=== PATIENT | female | born 1980 | race Caucasian/White ===

== ENCOUNTER → 2017-08-27 | Outpatient (CLI) | payer OTHER ==
[~2017-08-27] MED LIST: Bactrim Ds Tab1 EACH PO; CODACE30 PO; CRUTCH4 USE; CYCL10; Carafate1 GM/10 ML PO; DIAZ5 PO; DOXY100 PO; ENJUVIA; Estradiol1 MG; HYDACE5 PO; HYDR1TAB94 PO; IBUP800 PO; IBUPROFEN; LACT10SY PO; MAGCIT300 PO; MS Contin15 MG PO; NAPR500 PO; ONDA4 PO; OXYACE5T; OXYACE5T PO; POLY500 PO; PREDNISONE; PROM25 PO; Prilosec Otc20 MG PO; RXOXYACE PO; TRAM50 PO
== END | disposition home or self-care (01) ==
LOC: LAB SHORT 14:54
DX: J02.9 Acute pharyngitis, unspecified (principal)
CPT/HCPCS: 87070; 87077; 87185

== ENCOUNTER 2017-09-30 16:32 | Emergency (ER) | payer OTHER ==
[~2017-09-30] VITALS: Ht 162.6 cm; Wt 63.5 kg
[~2017-09-30 16:32] MED LIST changes: -CYCL10; -Carafate1 GM/10 ML PO; -Estradiol1 MG; -HYDR1TAB94 PO; -Prilosec Otc20 MG PO
[2017-09-30] MEDS ORDERED: HYDR1TAB94 PO (17:03)
[2017-09-30 17:31] LABS: Source, Urine Clean Catch
[2017-09-30 17:40] LABS: Appearance, Urine Clear (Clear); Color, Urine Yellow (P-Yellow); Glucose Qualitative, Urine Neg (Neg); Ketones, Urine Neg (Neg); Leukocyte Esterase, Urine Neg (Neg); Nitrite, Urine Neg (Neg); Protein, Urine Neg (Neg)
[2017-09-30 17:41] LABS: Bilirubin, Urine Neg (Neg); Blood, Urine Neg (Neg); Urobilinogen, Urine NORM (Normal)
[2017-09-30 17:44] LABS: BASOPHILS ABSOLUTE AUTO 0.06 K/mm3 (0.00-0.23); BASOPHILS PERCENT AUTO 1 % (0-2); EOSINOPHILS ABSOLUTE AUTO 0.08 K/mm3 (0.00-0.68); EOSINOPHILS PERCENT AUTO 1 % (0-6); Hematocrit 37.6 % (33.0-51.0); Hemoglobin 12.3 g/dL (11.5-16.0); IMMATURE GRAN ABSOLUTE AUTO 0.03 K/mm3 (0.00-0.10); IMMATURE GRAN PERCENT AUTO 0 % (0-1); LYMPHOCYTES ABSOLUTE AUTO 1.96 K/mm3 (0.84-5.20); LYMPHOCYTES PERCENT AUTO 18 % (21-46); MONOCYTES ABSOLUTE AUTO 0.58 K/mm3 (0.16-1.47); MONOCYTES PERCENT AUTO 5 % (4-13); Mean Corpuscular HGB 30.1 pg (26.0-34.0); Mean Corpuscular HGB Conc 32.7 g/dL (31.5-36.5); Mean Corpuscular Volume 92 fL (80-100); Mean Platelet Volume 8.9 fL (9.1-12.4); NEUTROPHILS ABSOLUTE AUTO 8.02 K/mm3 (1.96-9.15); NEUTROPHILS PERCENT AUTO 75 % (41-73); Platelet Count 336 K/mm3 (150-400); RDW Coefficient Variation 11.9 % (11.7-14.2); RDW Standard Deviation 40.2 fL (35.1-46.3); Red Blood Cell Count 4.09 M/mm3 (3.80-5.20); White Blood Cell Count 10.73 K/mm3 (4.00-11.30)
[2017-09-30 17:55] LABS: Alanine Aminotransfer (ALT/SGP 31 U/L (12-78); Albumin, Blood 4.2 g/dL (3.4-5.0); Alk Phos 54 U/L (50-136); Anion Gap 8 mmol/L (6-16); Aspartate Aminotrans (AST/SGOT 24 U/L (12-37); Bilirubin, Total 0.4 mg/dL (0.1-1.0); Blood Urea Nitrogen 6 mg/dL (8-24); Bun/Creatinine Ratio 8.3 (12.0-20.0); CO2, Blood 29 mmol/L (21-32); Calcium, Blood 9.3 mg/dL (8.5-10.1); Chloride, Blood 103 mmol/L (98-108); Creatinine, Blood 0.72 mg/dL (0.40-1.00); Glomerular Filtration Rate >60 (60-); Glucose, Blood 103 mg/dL (70-99); Potassium, Blood 3.3 mmol/L (3.5-5.5); Sodium, Blood 140 mmol/L (136-145); Total Protein, Blood 8.2 g/dL (6.4-8.2)
[2017-09-30] MEDS ORDERED: Carafate1 GM/10 ML PO (19:14)
[2017-09-30] MEDS ORDERED: Prilosec Otc20 MG PO (19:14)
[2018-02-04] MEDS ORDERED: CYCL10 (09:28)
[2018-02-04] MEDS ORDERED: Estradiol1 MG (09:28)
== END 2017-09-30 20:05 | disposition home or self-care (01) ==
LOC: ER 16:32
PROVIDERS: Emergency Medicine
DX: K29.70 Gastritis, unspecified, without bleeding (principal); R10.13 Epigastric pain; Z88.8 Allergy status to other drugs, medicaments and biological substances; Z79.891 Long term (current) use of opiate analgesic; Z87.891 Personal history of nicotine dependence
CPT/HCPCS: 76705; 80053; 81003; 83690; 85025; 96361; 96374; 96375; 99284; J1170; J2405; J7030

== ENCOUNTER 2018-02-11 13:48 | Day surgery (SDC) | payer OTHER ==
[~2018-02-11] VITALS: Ht 162.6 cm; Wt 66.1 kg
[~2018-02-11 13:48] MED LIST changes: +CYCL10; +Carafate1 GM/10 ML PO; +Estradiol1 MG; +HYDR1TAB94 PO; +Prilosec Otc20 MG PO
== END 2018-02-11 17:06 | disposition home or self-care (01) ==
LOC: ORSCSDS 13:48
PROVIDERS: Orthopaedic Surgery
PROC: 0MNP4ZZ Release Left Knee Bursa and Ligament, Percutaneous Endoscopic Approach (ICD-10-PCS; principal; 2018-02-11 15:00)
DX: M23.52 Chronic instability of knee, left knee (principal); M22.42 Chondromalacia patellae, left knee; M76.50 Patellar tendinitis, unspecified knee; M67.52 Plica syndrome, left knee; K21.9 Gastro-esophageal reflux disease without esophagitis; Z79.899 Other long term (current) drug therapy
CPT/HCPCS: J0171; J0330; J0690; J1100; J1885; J2250; J2405; J3010; J7120

== ENCOUNTER → 2018-09-13 | Outpatient (CLI) | payer OTHER ==
[2018-09-13 18:06] LABS: BASOPHILS ABSOLUTE AUTO 0.06 K/mm3 (0.00-0.23); BASOPHILS PERCENT AUTO 1 % (0-2); EOSINOPHILS ABSOLUTE AUTO 0.32 K/mm3 (0.00-0.68); EOSINOPHILS PERCENT AUTO 5 % (0-6); Hematocrit 37.1 % (33.0-51.0); Hemoglobin 11.9 g/dL (11.5-16.0); IMMATURE GRAN ABSOLUTE AUTO 0.01 K/mm3 (0.00-0.10); IMMATURE GRAN PERCENT AUTO 0 % (0-1); LYMPHOCYTES ABSOLUTE AUTO 3.28 K/mm3 (0.84-5.20); LYMPHOCYTES PERCENT AUTO 46 % (21-46); MONOCYTES ABSOLUTE AUTO 0.38 K/mm3 (0.16-1.47); MONOCYTES PERCENT AUTO 5 % (4-13); Mean Corpuscular HGB 30.3 pg (26.0-34.0); Mean Corpuscular HGB Conc 32.1 g/dL (31.5-36.5); Mean Corpuscular Volume 94 fL (80-100); Mean Platelet Volume 8.8 fL (9.1-12.4); NEUTROPHILS ABSOLUTE AUTO 3.14 K/mm3 (1.96-9.15); NEUTROPHILS PERCENT AUTO 44 % (41-73); Platelet Count 381 K/mm3 (150-400); RDW Coefficient Variation 12.1 % (11.7-14.2); RDW Standard Deviation 42.3 fL (35.1-46.3); Red Blood Cell Count 3.93 M/mm3 (3.80-5.20); White Blood Cell Count 7.19 K/mm3 (4.00-11.30)
[2018-09-13 19:16] LABS: Alanine Aminotransfer (ALT/SGP 39 U/L (12-78); Albumin, Blood 3.7 g/dL (3.4-5.0); Albumin/Globulin Ratio 0.9 (0.8-1.8); Alk Phos 61 U/L (50-136); Anion Gap 6 mmol/L (6-16); Aspartate Aminotrans (AST/SGOT 25 U/L (12-37); Bilirubin, Total 0.4 mg/dL (0.1-1.0); Blood Urea Nitrogen 11 mg/dL (8-24); Bun/Creatinine Ratio 15.5 (12.0-20.0); CO2, Blood 29 mmol/L (21-32); Calcium, Blood 8.9 mg/dL (8.5-10.1); Chloride, Blood 103 mmol/L (98-108); Creatinine, Blood 0.71 mg/dL (0.40-1.00); Globulin, Blood 3.9 g/dL (2.2-4.0); Glomerular Filtration Rate >60 (60-); Glucose, Blood 85 mg/dL (70-99); Potassium, Blood 4.3 mmol/L (3.5-5.5); Sodium, Blood 138 mmol/L (136-145); Total Protein, Blood 7.6 g/dL (6.4-8.2)
== END ==
LOC: LAB 17:44 → LAB SHORT 17:44
PROVIDERS: Nurse Practitioner Family
DX: K21.9 Gastro-esophageal reflux disease without esophagitis (principal)
CPT/HCPCS: 80053; 85025; 86677

== ENCOUNTER → 2019-04-12 | Outpatient (CLI) | payer OTHER ==
[2019-04-12 19:08] LABS: Alanine Aminotransfer (ALT/SGP 31 U/L (12-78); Albumin/Globulin Ratio 1.1 (0.8-1.8); Alk Phos 52 U/L (50-136); Anion Gap 2 mmol/L (6-16); Aspartate Aminotrans (AST/SGOT 19 U/L (12-37); Bilirubin, Total 0.4 mg/dL (0.1-1.0); Blood Urea Nitrogen 10 mg/dL (8-24); Bun/Creatinine Ratio 14.9 (12.0-20.0); CO2, Blood 30 mmol/L (21-32); Calcium, Blood 9.3 mg/dL (8.5-10.1); Chloride, Blood 106 mmol/L (98-108); Creatinine, Blood 0.67 mg/dL (0.40-1.00); Free Thyroxine 0.84 ng/dL (0.70-1.60); Globulin, Blood 3.6 g/dL (2.2-4.0); Glomerular Filtration Rate >60 (60-); Glucose, Blood 81 mg/dL (70-99); Potassium, Blood 4.4 mmol/L (3.5-5.5); Sodium, Blood 138 mmol/L (136-145); Total Protein, Blood 7.6 g/dL (6.4-8.2)
[2019-04-12 19:12] LABS: Thyroid Stimulating Hormone 0.877 uIU/mL (0.360-4.800)
== END | disposition home or self-care (01) ==
LOC: LAB SHORT 18:06 → LAB 18:06
PROVIDERS: Nurse Practitioner Family
DX: F32.9 Major depressive disorder, single episode, unspecified (principal)
CPT/HCPCS: 80053; 82306; 84439; 84443

== ENCOUNTER → 2019-06-21 | Outpatient (CLI) | payer OTHER ==
[~2019-06-21] MED LIST changes: -Estradiol1 MG; +Estradiol2 MG PO; +Hydrocodone-Ap1 EA20 PO; +LEVFLO500; +Loratadine10 MG PO; -MS Contin15 MG PO; +Morphine Sulfat15 MG PO; +OMEPRAZOLE20 MG PO; +TAMS.4ER PO; +TOPI50 PO; +VENL75ER PO
== END | disposition home or self-care (01) ==
LOC: LAB SHORT 17:30 → LAB 17:30
DX: N20.0 Calculus of kidney (principal)
CPT/HCPCS: 87077; 87086; 87186

== ENCOUNTER 2019-06-23 17:12 | Inpatient (IN) | payer OTHER ==
[~2019-06-23] VITALS: Ht 167.6 cm; Wt 71.7 kg
[~2019-06-23 17:12] MED LIST changes: -Estradiol2 MG PO; -Hydrocodone-Ap1 EA20 PO; -LEVFLO500; -Loratadine10 MG PO; -OMEPRAZOLE20 MG PO; -TAMS.4ER PO; -TOPI50 PO; -VENL75ER PO
[2019-06-23 17:52] LABS: Source, Urine Catheter
[2019-06-23 17:54] LABS: BASOPHILS ABSOLUTE AUTO 0.05 K/mm3 (0.00-0.23); BASOPHILS PERCENT AUTO 0 % (0-2); EOSINOPHILS ABSOLUTE AUTO 0.14 K/mm3 (0.00-0.68); EOSINOPHILS PERCENT AUTO 1 % (0-6); Hematocrit 34.2 % (33.0-51.0); Hemoglobin 11.5 g/dL (11.5-16.0); IMMATURE GRAN ABSOLUTE AUTO 0.06 K/mm3 (0.00-0.10); IMMATURE GRAN PERCENT AUTO 0 % (0-1); LYMPHOCYTES ABSOLUTE AUTO 2.41 K/mm3 (0.84-5.20); LYMPHOCYTES PERCENT AUTO 16 % (21-46); MONOCYTES ABSOLUTE AUTO 1.29 K/mm3 (0.16-1.47); MONOCYTES PERCENT AUTO 8 % (4-13); Mean Corpuscular HGB 30.9 pg (26.0-34.0); Mean Corpuscular HGB Conc 33.6 g/dL (31.5-36.5); Mean Corpuscular Volume 92 fL (80-100); Mean Platelet Volume 8.7 fL (9.1-12.4); NEUTROPHILS PERCENT AUTO 75 % (41-73); Platelet Count 293 K/mm3 (150-400); RDW Coefficient Variation 12.3 % (11.7-14.2); RDW Standard Deviation 41.1 fL (35.1-46.3); Red Blood Cell Count 3.72 M/mm3 (3.80-5.20); White Blood Cell Count 15.55 K/mm3 (4.00-11.30)
[2019-06-23 17:54] LABS: Bilirubin, Urine Neg (Neg); Blood, Urine 5+ (Neg); Glucose Qualitative, Urine Neg (Neg); Ketones, Urine Neg (Neg); Leukocyte Esterase, Urine 3+ (Neg); Nitrite, Urine Pos (Neg); Protein, Urine 3+ (Neg); Urobilinogen, Urine NORM (Normal)
[2019-06-23] MEDS ORDERED: Hydrocodone-Ap1 EA20 PO (18:00)
[2019-06-23 18:04] LABS: Color, Urine Yellow (P-Yellow)
[2019-06-23 18:05] LABS: Appearance, Urine Cloudy (Clear)
[2019-06-23 18:07] LABS: White Blood Cells, Urine TNTC /hpf (0-5)
[2019-06-23 18:08] LABS: Red Blood Cells, Urine 25-50 /hpf (0-2)
[2019-06-23 18:08] LABS: Alanine Aminotransfer (ALT/SGP 34 U/L (12-78); Albumin, Blood 3.6 g/dL (3.4-5.0); Albumin/Globulin Ratio 0.9 (0.8-1.8); Alk Phos 62 U/L (50-136); Anion Gap 6 mmol/L (6-16); Aspartate Aminotrans (AST/SGOT 37 U/L (12-37); Beta HCG, Quantitative, Serum <1 mIU/mL (0-3); Bilirubin, Total 0.5 mg/dL (0.1-1.0); Blood Urea Nitrogen 14 mg/dL (8-24); Bun/Creatinine Ratio 16.8 (12.0-20.0); CO2, Blood 24 mmol/L (21-32); Calcium, Blood 8.5 mg/dL (8.5-10.1); Chloride, Blood 106 mmol/L (98-108); Creatinine, Blood 0.83 mg/dL (0.40-1.00); Globulin, Blood 3.9 g/dL (2.2-4.0); Glomerular Filtration Rate >60 (60-); Glucose, Blood 102 mg/dL (70-99); Potassium, Blood 3.1 mmol/L (3.5-5.5); Sodium, Blood 136 mmol/L (136-145); Total Protein, Blood 7.5 g/dL (6.4-8.2)
[2019-06-23 18:09] LABS: Bacteria Many /hpf; Squamous Epithelial Cells Few /hpf (Few)
[2019-06-23] MEDS ORDERED: OMEPRAZOLE20 MG PO (18:09)
[2019-06-23] MEDS ORDERED: Estradiol2 MG PO (18:21)
[2019-06-23] MEDS ORDERED: VENL75ER PO (18:21)
[2019-06-23] MEDS ORDERED: TOPI50 PO (18:21)
[2019-06-23] MEDS ORDERED: NAPR500 PO (18:22)
[2019-06-23] MEDS ORDERED: TAMS.4ER PO (18:22)
[2019-06-23] MEDS ORDERED: Loratadine10 MG PO (18:24)
--- NOTE | 2019-06-24 02:14 | NUR ---
ASSUMED CARE OF PATIENT AT APPROXIMATELY 0010 FROM ED RN MARIE Mes[place] PATIENT ARRIVED TO UNIT VIA STRETCHER; EYES WERE CLOSED; NOT RESPONDING TO QUESTIONS OR OPENING EYES. TRANSFER PATIENT FROM ED STRETCHER TO PCU STRETCHER VIA SLIDE SHEET AND MAX STAFF ASSIST. PATIENT COMPAINS OF HEADACHE. AFEBILE UPON ARRIVAL; MEDICATED PER EMAR. SHORTY UPON TRANSFERRING PATIENT TO PCU STRETCHER PATIENT STARTED TO SHAKE AND FULL BODY RIGOR FOR ABOUT 20 SECONDS THEN PATIENT BEGAN TO BREATH HEAVY; HEART RATE WHEN UP TO 150'S AND WITHIN 60 SECONDS PATIENT WAS AWAKE AND TALKING AGAIN. HUSBNAD REPORTS PATIENT HAS BEEN DOING THIS OFF AND ON IN THE ER; FREQUENCY OF EPISODE ARE DECREASING; PATIENT REPORTS HE THINK IT IS RELATED TO PAIN; PATIENT REPORTS THESE EPISODES STARTED WHEN SHE WAS ON THE TOILET AT HOME. PATIENT DENIES NUMBNESS, TINGLING AND NAUSEA. PATIENT REPORTS DIZZINESS WHEN SHE SITS UP ON BED. PATIENT USES BEDPAN; REPORTS SHE WILL HAVE EPISODE AFTER URINATING. UTI ON ADMIT. ADMISSION COMPLETE. ST ON TELE WITH A RATE IN 120S; OXYGEN SATURATION ABOVE 90% ON ROOM AIR. PATIENT NPO; IVF INFUSING PER ORDER. SLEEPING BEDSIDE. PATIENT CURRENTLY SLEEPING IN BED; CALL LIGHT IN REACH; BED IN LOWEST POSISTON; BED ALARM ON; WILL CONTINUE TO MONITOR AND ASSESS UNTIL END OF SHIFT.
--- NOTE | 2019-06-24 04:35 | NUR ---
PATIENT HAD TWO MORE EPISODES; LASTING LESS THAN A MINUTE EACH; HEART RATE UP TO 130S AT THAT TIME; HEART RATE TRENDING DOWN SINCE ADMIT TO 100'S-110S. PATIENT REPORTS SHE HAS BEEN PASSING OUT FOR MONTHS; ONCE WHILE DRIVING; REPORTS SHE GET DIZZINESS WITH THESE EPISODES. PATIENT NAUSEOUS; MEDICATED PER EMAR; PATIENT COMPLAINS OF HEADACHE; MEDICATED PER EMAR. WILL CONTINUE TO MONITOR AND ASSESS UNTIL END OF SHIFT.
[2019-06-24 07:20] LABS: BASOPHILS ABSOLUTE AUTO 0.04 K/mm3 (0.00-0.23); BASOPHILS PERCENT AUTO 0 % (0-2); EOSINOPHILS ABSOLUTE AUTO 0.08 K/mm3 (0.00-0.68); EOSINOPHILS PERCENT AUTO 0 % (0-6); Hematocrit 32.5 % (33.0-51.0); Hemoglobin 10.7 g/dL (11.5-16.0); IMMATURE GRAN ABSOLUTE AUTO 0.09 K/mm3 (0.00-0.10); IMMATURE GRAN PERCENT AUTO 1 % (0-1); LYMPHOCYTES ABSOLUTE AUTO 2.15 K/mm3 (0.84-5.20); LYMPHOCYTES PERCENT AUTO 12 % (21-46); MONOCYTES PERCENT AUTO 7 % (4-13); Mean Corpuscular HGB 30.8 pg (26.0-34.0); Mean Corpuscular HGB Conc 32.9 g/dL (31.5-36.5); Mean Corpuscular Volume 94 fL (80-100); Mean Platelet Volume 8.7 fL (9.1-12.4); NEUTROPHILS ABSOLUTE AUTO 14.44 K/mm3 (1.96-9.15); NEUTROPHILS PERCENT AUTO 80 % (41-73); Platelet Count 258 K/mm3 (150-400); RDW Coefficient Variation 12.6 % (11.7-14.2); RDW Standard Deviation 43.3 fL (35.1-46.3); Red Blood Cell Count 3.47 M/mm3 (3.80-5.20)
--- NOTE | 2019-06-24 07:30 | NUR ---
PT VERY QUIET. BARELY ANSWERS QUESTIONS. STATES FEELS HARD TIME BREATHING. TALKED ABOUT NOT GIVING PAIN MEDS WHICH MAY DECREASE RESPIRATORY DRIVE. STATES SOME PAIN FLANK HEADACHE,. MED PER EMAR. TORADOL AND TYLENOL. H.R REG, NO MURMER NOTED. PER TELE S TACH AT 116. LUNGS CLEAR RESP EASY, UNLABORED. ON R.A. BT X4 STATES LAST BM YEST. PAIN WITH URINATION. TOO WEAK TO GET OOB TO BATHROOM. USING BEDPAN SUCCESSFULLY. BED IN LOW POSITION, CALL LITE IN REACH, CALLS APPROP. HUSB AT BEDSIDE.
[2019-06-24 07:35] LABS: Anion Gap 7 mmol/L (6-16); Blood Urea Nitrogen 8 mg/dL (8-24); Bun/Creatinine Ratio 10.1 (12.0-20.0); CO2, Blood 22 mmol/L (21-32); Calcium, Blood 7.6 mg/dL (8.5-10.1); Chloride, Blood 112 mmol/L (98-108); Creatinine, Blood 0.79 mg/dL (0.40-1.00); Glomerular Filtration Rate >60 (60-); Glucose, Blood 106 mg/dL (70-99); Potassium, Blood 3.6 mmol/L (3.5-5.5); Sodium, Blood 141 mmol/L (136-145)
--- NOTE | 2019-06-24 14:20 | NUR ---
PT C/O PAIN. IS AWAKE AT THIS TIME. ADMIN PER EMAR . PT REPORT NO PAIN AFTER 1 MG DILAUDID.
--- NOTE | 2019-06-24 18:13 | NUR ---
PT PLEASANT CASI. PAIN MANAGED WITH AVAIL MEDS. TORADOL HAS HELPED SOME. PT MUCH MORE AWAKE AT THIS TIME. 1 MG DILAUDID BROUGHT PAIN TO 8 TO 1 PT REMAINED AWAKE AND ALERT. RESP COMFORTABLE. VSS. NO OTHER CONCERNS AT THIS TIME. BED IN LOW POSITIOIN, CALL LITE IN REACH, CALLS APPROP. PT PLEASANT AND AT BEDSIDE MOST OF DAY
--- NOTE | 2019-06-25 00:41 | NUR ---
1924: ASSUMED CARE OF PATIENT. PER DAY RN PATIENT HAD BEEN NAUSEATED BY PAIN MED DILAUDID EARLY IN THE DAY. LAST DOSE OF DILAUDID WAS 183: PT DENIES N/V AT THIS TIME. 2029: PT NAUSEATED. MEDS GIVEN PER EMAR. 2219: SPOKE TO ONCALL HOSPITALIST REGARDING PAIN EMDS AND REQ ADDITIONAL ANTI-EMETICS. SOMETING FOR ACID THROAT. MEDS GIVEN PER EMAR.
[2019-06-25 03:59] LABS: BASOPHILS ABSOLUTE AUTO 0.06 K/mm3 (0.00-0.23); BASOPHILS PERCENT AUTO 0 % (0-2); EOSINOPHILS PERCENT AUTO 1 % (0-6); Hematocrit 31.6 % (33.0-51.0); Hemoglobin 10.3 g/dL (11.5-16.0); IMMATURE GRAN ABSOLUTE AUTO 0.06 K/mm3 (0.00-0.10); IMMATURE GRAN PERCENT AUTO 0 % (0-1); LYMPHOCYTES ABSOLUTE AUTO 2.21 K/mm3 (0.84-5.20); LYMPHOCYTES PERCENT AUTO 15 % (21-46); MONOCYTES ABSOLUTE AUTO 1.21 K/mm3 (0.16-1.47); MONOCYTES PERCENT AUTO 8 % (4-13); Mean Corpuscular HGB 31.1 pg (26.0-34.0); Mean Corpuscular HGB Conc 32.6 g/dL (31.5-36.5); Mean Corpuscular Volume 96 fL (80-100); Mean Platelet Volume 8.8 fL (9.1-12.4); NEUTROPHILS ABSOLUTE AUTO 11.12 K/mm3 (1.96-9.15); NEUTROPHILS PERCENT AUTO 75 % (41-73); Platelet Count 229 K/mm3 (150-400); RDW Coefficient Variation 12.6 % (11.7-14.2); Red Blood Cell Count 3.31 M/mm3 (3.80-5.20); White Blood Cell Count 14.76 K/mm3 (4.00-11.30)
[2019-06-25 04:17] LABS: Albumin, Blood 2.3 g/dL (3.4-5.0); Anion Gap 8 mmol/L (6-16); Blood Urea Nitrogen 8 mg/dL (8-24); CO2, Blood 19 mmol/L (21-32); Calcium, Blood 7.8 mg/dL (8.5-10.1); Chloride, Blood 112 mmol/L (98-108); Creatinine, Blood 0.67 mg/dL (0.40-1.00); Glomerular Filtration Rate >60 (60-); Glucose, Blood 80 mg/dL (70-99); Phosphorus, Blood 2.1 mg/dL (2.5-4.9); Potassium, Blood 3.6 mmol/L (3.5-5.5); Sodium, Blood 139 mmol/L (136-145)
--- NOTE | 2019-06-25 18:38 | NUR ---
PT TRANSFERED. PT TRANSFERED TO 313 IN STABLE CONDITION. PT ORIENTED TO ROOM. CALL LIGHT IN REACH. WILL CONTINUE TO MONITOR UNTIL TURNOVER IS COMPLETE.
--- NOTE | 2019-06-25 19:02 | NUR ---
TRANSFER NOTE/SHIFT SUMMARY PT A&Ox4. CALM AND COOPERATIVE WITH CARE. PT RESTING IN BED DURING SHIFT. UP SBA TO BSC AND BATHROOM. PT REPORTS STOUT 7/10 PAIN, MEDICATED x2 WITH TORAADOL WITH POSITIVE RESULTS AND TYLENOLx1 WITH NO CHANGES TO PAIN. PT REPORTS NAUSEA, MEDICATED x1 WITH ZOFRAN, NO EMESIS NOTED. PT REPORTS LIGHTHEADEDNESS ON/OFF T/O SHIFT. PT REPORTS DIFFIUCULTY VOIDING, INITIALLY REFUSED FLOMAX, REEDUCATED PT ON FLOMAX, ADMINISTERED FLOMAX AND PYRIDIUM x1. VSS. NO OTHER ACUTE CHANGES NOTED. REPORT GIVEN TO MED UNIT MATHIEU SANTOS, PT TRANSFERED TO ROOM AT 1815.
--- NOTE | 2019-06-26 03:48 | NUR ---
SHIFT SUMMARY PT HAS BEEN COMPLAINING OF PAIN WHEN BREATHING DEEP THIS SHIFT. SHE HAS DIFFICULTY EXPLAINING HOW IT FEELS. SHE HAS BEEN MEDICATED PER EMAR AND REQUIRES ZOFRAN WITH HER PAIN MEDICATION. WILL CONTINUE TO MONITOR.
[2019-06-26 04:37] LABS: BASOPHILS ABSOLUTE AUTO 0.02 K/mm3 (0.00-0.23); BASOPHILS PERCENT AUTO 0 % (0-2); EOSINOPHILS ABSOLUTE AUTO 0.17 K/mm3 (0.00-0.68); EOSINOPHILS PERCENT AUTO 1 % (0-6); Hematocrit 30.1 % (33.0-51.0); Hemoglobin 9.8 g/dL (11.5-16.0); IMMATURE GRAN ABSOLUTE AUTO 0.04 K/mm3 (0.00-0.10); IMMATURE GRAN PERCENT AUTO 0 % (0-1); LYMPHOCYTES ABSOLUTE AUTO 1.76 K/mm3 (0.84-5.20); LYMPHOCYTES PERCENT AUTO 15 % (21-46); MONOCYTES ABSOLUTE AUTO 0.89 K/mm3 (0.16-1.47); MONOCYTES PERCENT AUTO 7 % (4-13); Mean Corpuscular HGB 30.8 pg (26.0-34.0); Mean Corpuscular HGB Conc 32.6 g/dL (31.5-36.5); Mean Corpuscular Volume 95 fL (80-100); NEUTROPHILS ABSOLUTE AUTO 9.14 K/mm3 (1.96-9.15); NEUTROPHILS PERCENT AUTO 76 % (41-73); Platelet Count 277 K/mm3 (150-400); RDW Coefficient Variation 12.4 % (11.7-14.2); RDW Standard Deviation 43.1 fL (35.1-46.3); Red Blood Cell Count 3.18 M/mm3 (3.80-5.20); White Blood Cell Count 12.02 K/mm3 (4.00-11.30)
[2019-06-26 04:56] LABS: Albumin, Blood 2.4 g/dL (3.4-5.0); Anion Gap 9 mmol/L (6-16); Blood Urea Nitrogen 8 mg/dL (8-24); Bun/Creatinine Ratio 12.6 (12.0-20.0); CO2, Blood 20 mmol/L (21-32); Chloride, Blood 112 mmol/L (98-108); Creatinine, Blood 0.64 mg/dL (0.40-1.00); Glomerular Filtration Rate >60 (60-); Glucose, Blood 96 mg/dL (70-99); Phosphorus, Blood 1.4 mg/dL (2.5-4.9); Potassium, Blood 3.5 mmol/L (3.5-5.5); Sodium, Blood 141 mmol/L (136-145)
--- NOTE | 2019-06-26 08:15 | NUR ---
PT EDUCATED ON TRYING NOT TO MOVE AROUND PT EDUCATED ON TRYING NOT TO MOVE AROUND IN BED TO AVOID AGGRIVATING HIS CERVICAL FX. PT STATES HE UNDERSTANDS, BUT CONTINUES TO MOVE HIMSELF AROUND WITHIN HIS BED. PT AGAIN TOLD TO TRY NOT TO MOVE HIS HEAD, NECK OR SHOULDERS. PT AGAIN CONTINUES TO MOVE HIS HEAD & SHOULDER AROUND IN FRONT OF THIS RN. WILL CONTINUE TO REMIND PT TO TRY NOT TO MOVE. WILL CONTINUE TO MONITOR.
--- NOTE | 2019-06-26 16:42 | NUR ---
SHIFT SUMMARY PT STATES SHE IS "FEELING MUCH BETTER THIS AFTERNOON." PT CONTINUES TO C/O NAUSEA & HEADACHE PAIN. PT STATES ORDERED MEDS HAVE HELPED WITH SUCH PAIN. PT STARTED ON IV ANTIOBIOTICS. TELE REMOVED & NO IV NEEDED. PT UP TO BATHROOM FOR SHOWER. PT HAS BEEN STABLE ON HER FEET THIS SHIFT. STANDS BY FOR TRANSFERS. PT POSSIBLE DC TOMORROW. PE STUDY COMPLETED TODAY & NEGATIVE. PT STATES HER DIFFICULTY BREATHING HAS ALSO IMPROVED. WILL CONTINUE TO MONITOR UNTIL TURNOVER IS COMPLETE.
[2019-06-27 04:06] LABS: BASOPHILS ABSOLUTE AUTO 0.02 K/mm3 (0.00-0.23); BASOPHILS PERCENT AUTO 0 % (0-2); EOSINOPHILS PERCENT AUTO 2 % (0-6); Hemoglobin 9.8 g/dL (11.5-16.0); IMMATURE GRAN ABSOLUTE AUTO 0.02 K/mm3 (0.00-0.10); IMMATURE GRAN PERCENT AUTO 0 % (0-1); LYMPHOCYTES ABSOLUTE AUTO 1.92 K/mm3 (0.84-5.20); LYMPHOCYTES PERCENT AUTO 21 % (21-46); MONOCYTES ABSOLUTE AUTO 0.71 K/mm3 (0.16-1.47); MONOCYTES PERCENT AUTO 8 % (4-13); Mean Corpuscular HGB 30.9 pg (26.0-34.0); Mean Corpuscular HGB Conc 32.7 g/dL (31.5-36.5); Mean Corpuscular Volume 95 fL (80-100); Mean Platelet Volume 8.7 fL (9.1-12.4); NEUTROPHILS ABSOLUTE AUTO 6.44 K/mm3 (1.96-9.15); NEUTROPHILS PERCENT AUTO 69 % (41-73); Platelet Count 287 K/mm3 (150-400); RDW Coefficient Variation 12.3 % (11.7-14.2); Red Blood Cell Count 3.17 M/mm3 (3.80-5.20); White Blood Cell Count 9.31 K/mm3 (4.00-11.30)
--- NOTE | 2019-06-27 04:10 | NUR ---
SHIFT SUMMARY PT STILL STRUGGLING WITH PAIN CONTROL AT TIMES AND NAUSEA. WILL CONTINUE TO MONITOR. NO OTHER CHANGES AT THIS TIME.
[2019-06-27 04:19] LABS: Albumin, Blood 2.4 g/dL (3.4-5.0); Anion Gap 7 mmol/L (6-16); Blood Urea Nitrogen 6 mg/dL (8-24); Bun/Creatinine Ratio 8.5 (12.0-20.0); CO2, Blood 23 mmol/L (21-32); Calcium, Blood 8.1 mg/dL (8.5-10.1); Chloride, Blood 111 mmol/L (98-108); Creatinine, Blood 0.71 mg/dL (0.40-1.00); Glomerular Filtration Rate >60 (60-); Glucose, Blood 83 mg/dL (70-99); Phosphorus, Blood 1.9 mg/dL (2.5-4.9); Potassium, Blood 3.4 mmol/L (3.5-5.5); Sodium, Blood 141 mmol/L (136-145)
--- NOTE | 2019-06-27 17:40 | NUR ---
SHIFT SUMMARY PT STILL C/O HEADACHE THROUGHOUT SHIFT. SEE EMAR FOR MEDS GIVEN. NAUSEA TREATED PER EMAR. PT ENCOURAGED TO GET UP & AMBULATE. PT AGREED & MADE ONE LOOP AROUND THIS FLOOR. PT STATES SHE HAS BEEN MOVING AROUND IN ROOM MORE. PT STATES SHE THINKS MOVING AROUND HAS INCREASED HER HEADACHE PAIN. NO OTHER CHANGES IN ASSESSMENT AT THIS TIME. VSS. WILL CONTINUE TO MONITOR UNTIL TURNOVER IS COMPLETE.
--- NOTE | 2019-06-28 05:18 | NUR ---
SUMMARY: A/OX4, SPECIFIES NEEDS AND CALLS APPROPRIATELY. SHE CONT'S TO C/O CONSTANT STOUT W/MORPHINE AND TORADOL RECIEVED PRN PER EMAR. PAIN CONTROL NEVER GETS BETTER THEN 12/31. PT ENCOURAGED TO AMBULATE AND WAS UP W/ASSIST TO TOILET BUT REFUSED WALKING IN HALLS TONIGHT. SHE ALSO HAD ZOFRAN PRN FOR IV PAIN MED NAUSEA PROPHYLAXIS. SPO2 WNL ON RA, LS CLEAR. NO ACUTE CHANGES, VSS/AFEBRILE. POSSIBLE D/C TODAY. WCTM AND REPORT TO DAY RN.
[2019-06-28] MEDS ORDERED: LEVFLO500 (15:55)
--- NOTE | 2019-06-28 16:30 | NUR ---
DISCHARGE DISCHARGE MEDICATIONS AND INSTRUCTIONS EXPLAINED TO PATIENT. PATIENT STATED UNDERSTANDING. PCP FOLLOW UP SCHEDULED. IV REMOVED WITHOUT DIFFICULTY. BELONGINGS WITH PATIENT. PATIENT AMBULATED TO PRIVATE VEHICLE.
== END 2019-06-28 16:14 | disposition home or self-care (01) | DRG 871 ==
LOC: ER 17:12 → PCU 21:03 → MEDS 06-25 18:23 → ENPENDDIS 06-28 15:11 → MEDS 06-28 16:14
PROVIDERS: Emergency Medicine; Family Medicine; Nurse Practitioner Acute Care; ADMIT Internal Medicine
DX: A41.51 Sepsis due to Escherichia coli [E. coli] (principal); J18.9 Pneumonia, unspecified organism; N12 Tubulo-interstitial nephritis, not specified as acute or chronic; E87.6 Hypokalemia; E83.39 Other disorders of phosphorus metabolism; G43.109 Migraine with aura, not intractable, without status migrainosus; N20.0 Calculus of kidney; D64.9 Anemia, unspecified; K21.9 Gastro-esophageal reflux disease without esophagitis; F41.9 Anxiety disorder, unspecified; Z88.5 Allergy status to narcotic agent; Z88.8 Allergy status to other drugs, medicaments and biological substances; Z87.891 Personal history of nicotine dependence
CPT/HCPCS: 36415; 70450; 71260; 74176; 80048; 80053; 80069; 81001; 83605; 84702; 85025; 85379; 87040; 87077; 87086; 87186; 93005; 93010; 96361; 96365; 96366; 96367; 96372-59; 96375; 96376; 99285-25; A9270; J0696; J0780; J1170; J1650; J1885; J2060; J2405; J3010; J3030; J3480; J7030; J7120; P9612; Q9967

== ENCOUNTER → 2020-01-18 | Outpatient (CLI) | payer SELFPAY ==
[~2020-01-18] MED LIST changes: +Estradiol2 MG PO; +Hydrocodone-Ap1 EA20 PO; +LEVFLO500; +Loratadine10 MG PO; +OMEPRAZOLE20 MG PO; +TAMS.4ER PO; +TOPI50 PO; +VENL75ER PO
== END | disposition home or self-care (01) ==
LOC: LAB 10:10 → LAB SHORT 10:10
DX: R31.9 Hematuria, unspecified (principal)
CPT/HCPCS: 87077; 87086; 87186

== ENCOUNTER → 2020-02-01 | Outpatient (CLI) | payer SELFPAY | END | disposition home or self-care (01) | LOC: LAB 15:40 → LAB SHORT 15:40 | DX: N39.0 Urinary tract infection, site not specified (principal) | CPT/HCPCS: 87086 ==

== ENCOUNTER 2020-04-02 12:29 | Emergency (ER) | payer SELFPAY ==
[~2020-04-02] VITALS: Ht 162.6 cm; Wt 68.0 kg
[2020-04-02 13:09] LABS: BASOPHILS ABSOLUTE AUTO 0.06 K/mm3 (0.00-0.23); BASOPHILS PERCENT AUTO 1 % (0-2); EOSINOPHILS ABSOLUTE AUTO 0.11 K/mm3 (0.00-0.68); EOSINOPHILS PERCENT AUTO 1 % (0-6); Hematocrit 40.1 % (33.0-51.0); IMMATURE GRAN ABSOLUTE AUTO 0.01 K/mm3 (0.00-0.10); IMMATURE GRAN PERCENT AUTO 0 % (0-1); LYMPHOCYTES ABSOLUTE AUTO 3.25 K/mm3 (0.84-5.20); LYMPHOCYTES PERCENT AUTO 41 % (21-46); MONOCYTES PERCENT AUTO 5 % (4-13); Mean Corpuscular HGB 30.7 pg (26.0-34.0); Mean Corpuscular HGB Conc 32.4 g/dL (31.5-36.5); Mean Corpuscular Volume 95 fL (80-100); Mean Platelet Volume 9.2 fL (9.1-12.4); NEUTROPHILS ABSOLUTE AUTO 4.17 K/mm3 (1.96-9.15); NEUTROPHILS PERCENT AUTO 52 % (41-73); Platelet Count 333 K/mm3 (150-400); RDW Coefficient Variation 11.9 % (11.7-14.2); RDW Standard Deviation 41.2 fL (35.1-46.3); Red Blood Cell Count 4.24 M/mm3 (3.80-5.20)
[2020-04-02 13:44] LABS: Alanine Aminotransfer (ALT/SGP 22 U/L (12-78); Alk Phos 45 U/L (50-136); Anion Gap 5 mmol/L (6-16); Aspartate Aminotrans (AST/SGOT 19 U/L (12-37); Bilirubin, Total 0.3 mg/dL (0.1-1.0); Blood Urea Nitrogen 12 mg/dL (8-24); Bun/Creatinine Ratio 14.5 (12.0-20.0); CO2, Blood 26 mmol/L (21-32); Calcium, Blood 9.3 mg/dL (8.5-10.1); Chloride, Blood 108 mmol/L (98-108); Creatinine, Blood 0.83 mg/dL (0.40-1.00); Globulin, Blood 4.1 g/dL (2.2-4.0); Glomerular Filtration Rate >60 (60-); Glucose, Blood 87 mg/dL (70-99); Potassium, Blood 3.8 mmol/L (3.5-5.5); Sodium, Blood 139 mmol/L (136-145); Total Protein, Blood 8.1 g/dL (6.4-8.2)
[2020-04-02 14:52] LABS: Source, Urine Clean Catch
[2020-04-02 14:56] LABS: Bilirubin, Urine Neg (Neg); Blood, Urine Neg (Neg); Glucose Qualitative, Urine Neg (Neg); Ketones, Urine 1+ (Neg); Leukocyte Esterase, Urine 1+ (Neg); Nitrite, Urine Neg (Neg); Protein, Urine 1+ (Neg); Specific Gravity, Urine 1.015 (1.003-1.022); Urobilinogen, Urine 1+ (Normal)
[2020-04-02 15:09] LABS: Appearance, Urine Hazy (Clear); Color, Urine Yellow (P-Yellow)
[2020-04-02 15:10] LABS: Bacteria Rare /hpf; Calcium Oxalate Crystals Mod /hpf
[2020-04-02 15:11] LABS: Amorphous Light (0-Heavy); Red Blood Cells, Urine Not Seen /hpf (0-2); Squamous Epithelial Cells Many /hpf (Few); White Blood Cells, Urine Rare /hpf (0-5)
== END 2020-04-02 16:13 | disposition home or self-care (01) ==
LOC: ER 12:29
PROVIDERS: Emergency Medicine; Physician Assistant
DX: R10.9 Unspecified abdominal pain (principal); M54.5 Low back pain; Z88.6 Allergy status to analgesic agent; Z88.5 Allergy status to narcotic agent; Z88.8 Allergy status to other drugs, medicaments and biological substances; Z79.899 Other long term (current) drug therapy; Z87.891 Personal history of nicotine dependence; D64.9 Anemia, unspecified
CPT/HCPCS: 36415; 76770; 80053; 81001; 81025; 83690; 85025; 87086; 96361; 96374; 96375; 99284-25; J1885; J2405; J7030

== ENCOUNTER → 2020-08-22 | Outpatient (CLI) | payer OTHER ==
[2020-08-22 17:57] LABS: Free Thyroxine 0.78 ng/dL (0.70-1.60)
[2020-08-22 17:59] LABS: Thyroid Stimulating Hormone 1.06 uIU/mL (0.360-4.800)
== END | disposition home or self-care (01) ==
LOC: LAB SHORT 16:30
PROVIDERS: Nurse Practitioner Family
DX: R21 Rash and other nonspecific skin eruption (principal)
CPT/HCPCS: 84439; 84443; 86376; 86592

== ENCOUNTER → 2020-09-03 | Outpatient (CLI) | payer OTHER ==
[2020-09-03 18:11] LABS: BASOPHILS ABSOLUTE AUTO 0.07 K/mm3 (0.00-0.23); BASOPHILS PERCENT AUTO 1 % (0-2); EOSINOPHILS ABSOLUTE AUTO 0.22 K/mm3 (0.00-0.68); EOSINOPHILS PERCENT AUTO 2 % (0-6); Hematocrit 39.2 % (33.0-51.0); Hemoglobin 12.5 g/dL (11.5-16.0); IMMATURE GRAN ABSOLUTE AUTO 0.04 K/mm3 (0.00-0.10); IMMATURE GRAN PERCENT AUTO 0 % (0-1); LYMPHOCYTES ABSOLUTE AUTO 4.09 K/mm3 (0.84-5.20); LYMPHOCYTES PERCENT AUTO 45 % (21-46); MONOCYTES ABSOLUTE AUTO 0.53 K/mm3 (0.16-1.47); MONOCYTES PERCENT AUTO 6 % (4-13); Mean Corpuscular HGB 30.4 pg (26.0-34.0); Mean Corpuscular HGB Conc 31.9 g/dL (31.5-36.5); Mean Corpuscular Volume 95 fL (80-100); Mean Platelet Volume 8.9 fL (9.1-12.4); NEUTROPHILS ABSOLUTE AUTO 4.07 K/mm3 (1.96-9.15); NEUTROPHILS PERCENT AUTO 45 % (41-73); Platelet Count 399 K/mm3 (150-400); RDW Coefficient Variation 12.5 % (11.7-14.2); RDW Standard Deviation 44.1 fL (35.1-46.3); Red Blood Cell Count 4.11 M/mm3 (3.80-5.20); White Blood Cell Count 9.02 K/mm3 (4.00-11.30)
[2020-09-03 18:12] LABS: Bilirubin, Urine Neg (Neg); Blood, Urine Neg (Neg); Glucose Qualitative, Urine Neg (Neg); Ketones, Urine Neg (Neg); Leukocyte Esterase, Urine Neg (Neg); Nitrite, Urine Neg (Neg); Protein, Urine Neg (Neg); Specific Gravity, Urine 1.015 (1.003-1.022); Urobilinogen, Urine NORM (Normal)
[2020-09-03 18:19] LABS: Appearance, Urine Clear (Clear); Color, Urine Pale Yellow (P-Yellow)
[2020-09-03 19:20] LABS: Alanine Aminotransfer (ALT/SGP 28 U/L (12-78); Albumin, Blood 3.7 g/dL (3.4-5.0); Albumin/Globulin Ratio 0.9 (0.8-1.8); Alk Phos 49 U/L (50-136); Anion Gap 7 mmol/L (6-16); Aspartate Aminotrans (AST/SGOT 19 U/L (12-37); Bilirubin, Total 0.2 mg/dL (0.1-1.0); Blood Urea Nitrogen 11 mg/dL (8-24); Bun/Creatinine Ratio 16.2 (12.0-20.0); CO2, Blood 25 mmol/L (21-32); Calcium, Blood 9.5 mg/dL (8.5-10.1); Chloride, Blood 106 mmol/L (98-108); Creatinine, Blood 0.68 mg/dL (0.40-1.00); Globulin, Blood 4.2 g/dL (2.2-4.0); Glomerular Filtration Rate >60 (60-); Glucose, Blood 81 mg/dL (70-99); Potassium, Blood 4.3 mmol/L (3.5-5.5); Sodium, Blood 138 mmol/L (136-145); Total Protein, Blood 7.9 g/dL (6.4-8.2)
== END | disposition home or self-care (01) ==
LOC: LAB SHORT 17:15
PROVIDERS: Nurse Practitioner Family
DX: N39.0 Urinary tract infection, site not specified (principal)
CPT/HCPCS: 80053; 81003; 85025; 87086

== ENCOUNTER → 2021-08-02 | Outpatient (CLI) | payer OTHER | END | disposition home or self-care (01) | LOC: LAB SHORT 18:26 → LAB 18:26 | DX: N39.0 Urinary tract infection, site not specified (principal) | CPT/HCPCS: 87086 ==

== ENCOUNTER → 2021-10-17 | Outpatient (CLI) | payer OTHER | LOC: LAB SHORT 17:41 → LAB 17:41 | DX: R30.9 Painful micturition, unspecified (principal) | CPT/HCPCS: 87077; 87086; 87186 ==

== ENCOUNTER 2022-01-05 13:16 | Emergency (ER) | payer OTHER ==
[~2022-01-05] VITALS: Ht 157.5 cm; Wt 81.7 kg
[2022-01-05] MEDS ORDERED: OXYC5 PO (13:49)
[2022-01-05 13:54] LABS: Source, Urine Foley catheter
[2022-01-05 13:56] LABS: Appearance, Urine Clear (Clear); Bilirubin, Urine Neg (Neg); Blood, Urine Neg (Neg); Color, Urine Yellow (P-Yellow); Glucose Qualitative, Urine Neg (Neg); Ketones, Urine Neg (Neg); Leukocyte Esterase, Urine Neg (Neg); Nitrite, Urine Neg (Neg); Protein, Urine Neg (Neg); Specific Gravity, Urine 1.015 (1.003-1.022); Urobilinogen, Urine NORM (Normal); pH, Urine 6.5 (5.0-8.0)
== END 2022-01-05 15:12 | disposition home or self-care (01) ==
LOC: ER 13:16
PROVIDERS: Emergency Medicine
DX: R33.9 Retention of urine, unspecified (principal); K59.00 Constipation, unspecified; Z88.5 Allergy status to narcotic agent; Z88.8 Allergy status to other drugs, medicaments and biological substances; Z79.899 Other long term (current) drug therapy; Z87.891 Personal history of nicotine dependence
CPT/HCPCS: 51702; 81003

== ENCOUNTER 2022-01-28 12:58 | Emergency (ER) | payer OTHER ==
[~2022-01-28] VITALS: Ht 162.6 cm; Wt 86.2 kg
[~2022-01-28 12:58] MED LIST changes: +OXYC5 PO
[2022-01-28 14:27] LABS: BASOPHILS ABSOLUTE AUTO 0.05 K/mm3 (0.00-0.23); BASOPHILS PERCENT AUTO 1 % (0-2); EOSINOPHILS ABSOLUTE AUTO 0.09 K/mm3 (0.00-0.68); EOSINOPHILS PERCENT AUTO 1 % (0-6); Hematocrit 37.6 % (33.0-51.0); Hemoglobin 12.7 g/dL (11.5-16.0); IMMATURE GRAN ABSOLUTE AUTO 0.02 K/mm3 (0.00-0.10); IMMATURE GRAN PERCENT AUTO 0 % (0-1); LYMPHOCYTES ABSOLUTE AUTO 2.89 K/mm3 (0.84-5.20); LYMPHOCYTES PERCENT AUTO 30 % (21-46); MONOCYTES PERCENT AUTO 5 % (4-13); Mean Corpuscular HGB 31.3 pg (26.0-34.0); Mean Corpuscular HGB Conc 33.8 g/dL (31.5-36.5); Mean Corpuscular Volume 93 fL (80-100); Mean Platelet Volume 8.6 fL (9.1-12.4); NEUTROPHILS ABSOLUTE AUTO 6.15 K/mm3 (1.96-9.15); NEUTROPHILS PERCENT AUTO 63 % (41-73); Platelet Count 383 K/mm3 (150-400); RDW Coefficient Variation 13.2 % (11.7-14.2); RDW Standard Deviation 44.8 fL (35.1-46.3); Red Blood Cell Count 4.06 M/mm3 (3.80-5.20)
[2022-01-28 14:54] LABS: Ethanol (Alcohol), Blood, Med <3 mg/dL; Salicylate <1.7 mg/dL (2.8-20.0)
[2022-01-28 14:56] LABS: Acetaminophen, Random <2.0 ug/mL (10.0-30.0); Alanine Aminotransfer (ALT/SGP 35 U/L (12-78); Albumin, Blood 3.5 g/dL (3.4-5.0); Albumin/Globulin Ratio 0.8 (0.8-1.8); Alk Phos 59 U/L (50-136); Anion Gap 8 mmol/L (6-16); Aspartate Aminotrans (AST/SGOT 23 U/L (12-37); Bilirubin, Total 0.3 mg/dL (0.1-1.0); Blood Urea Nitrogen 14 mg/dL (8-24); Bun/Creatinine Ratio 19.3 (12.0-20.0); CO2, Blood 25 mmol/L (21-32); Chloride, Blood 106 mmol/L (98-108); Creatinine, Blood 0.73 mg/dL (0.40-1.00); Globulin, Blood 4.2 g/dL (2.2-4.0); Glomerular Filtration Rate 107 (60-); Glucose, Blood 99 mg/dL (70-99); Potassium, Blood 3.5 mmol/L (3.5-5.5); Sodium, Blood 139 mmol/L (136-145); Total Protein, Blood 7.7 g/dL (6.4-8.2)
[2022-01-28 15:09] LABS: Source, Urine Voided
[2022-01-28 15:16] LABS: Appearance, Urine Hazy (Clear); Bilirubin, Urine Neg (Neg); Blood, Urine 1+ (Neg); Color, Urine Amber (P-Yellow); Glucose Qualitative, Urine Neg (Neg); Ketones, Urine 3+ (Neg); Leukocyte Esterase, Urine Neg (Neg); Nitrite, Urine Neg (Neg); Protein, Urine 1+ (Neg); Specific Gravity, Urine 1.025 (1.003-1.022); Urobilinogen, Urine NORM (Normal)
[2022-01-28 15:22] LABS: Bacteria Many /hpf; Squamous Epithelial Cells Many /hpf (Few)
[2022-01-28 15:23] LABS: Hyaline Casts 0-2 /lpf (0-2)
[2022-01-28 15:31] LABS: U Amphetamine Screen Not Detected; U Barbituate Screen Not Detected; U Benzodiazapine Screen DETECTED; U Buprenorphine Screen Not Detected; U Cannabinoids Screen Not Detected; U Cocaine Screen Not Detected; U Methadone Screen Not Detected; U Methamphetamine Screen Not Detected; U Opiates Screen DETECTED; U Oxycodone Screen DETECTED; U Phencyclidine Screen Not Detected; U Propoxyphene Screen Not Detected
[2022-01-28] MEDS ORDERED: ONDA4ODT MM (16:19)
[2022-01-28] MEDS ORDERED: BANOPHEN25 MG PO (16:19)
[2022-01-28] MEDS ORDERED: BACL10 PO (16:19)
[2022-01-28] MEDS ORDERED: IMODIUM A-D2 M1 PO (16:19)
[2022-01-28 16:53] LABS: Influenza A, PCR NEGATIVE (NEGATIVE); Influenza B, PCR NEGATIVE (NEGATIVE); Resp Syncytial Virus, PCR NEGATIVE (NEGATIVE); SARS-Cov-2 (COVID-19) PCR, MMC NEGATIVE (NEGATIVE)
== END 2022-01-28 17:18 | disposition home or self-care (01) ==
LOC: ER 12:58
PROVIDERS: Emergency Medicine
DX: F32.A Depression, unspecified (principal); F11.23 Opioid dependence with withdrawal; Z88.5 Allergy status to narcotic agent; Z88.8 Allergy status to other drugs, medicaments and biological substances; Z79.899 Other long term (current) drug therapy; Z87.891 Personal history of nicotine dependence
CPT/HCPCS: 0241U; 36415; 80053; 81001; 81025; 85025; A9270; G0480

== ENCOUNTER → 2022-07-12 | Outpatient (CLI) | payer OTHER ==
[~2022-07-12] MED LIST changes: +BACL10 PO; +BANOPHEN25 MG PO; +IMODIUM A-D2 M1 PO; +ONDA4ODT MM
== END | disposition home or self-care (01) ==
LOC: LAB SHORT 13:15 → LAB 13:15
DX: R33.9 Retention of urine, unspecified (principal)
CPT/HCPCS: 87077; 87086; 87186

== ENCOUNTER 2022-09-04 12:02 | Emergency (ER) | payer OTHER ==
[~2022-09-04] VITALS: Ht 162.6 cm; Wt 73.9 kg
[2022-09-04] MEDS ORDERED: HYDR1TAB94 PO (14:41)
== END 2022-09-04 14:56 | disposition home or self-care (01) ==
LOC: ER 12:02
DX: M25.512 Pain in left shoulder (principal); M25.522 Pain in left elbow; W01.0XXA Fall on same level from slipping, tripping and stumbling without subsequent striking against object, initial encounter; Z88.8 Allergy status to other drugs, medicaments and biological substances; Z79.899 Other long term (current) drug therapy; Z87.891 Personal history of nicotine dependence
CPT/HCPCS: 73060; A9270; J1885

== ENCOUNTER 2022-10-22 14:34 | Emergency (ER) | payer OTHER ==
[~2022-10-22] VITALS: Ht 162.6 cm; Wt 73.9 kg
== END 2022-10-22 17:19 | disposition home or self-care (01) ==
LOC: ER 14:34
DX: S61.412A Laceration without foreign body of left hand, initial encounter (principal); X78.1XXA Intentional self-harm by knife, initial encounter; Z88.8 Allergy status to other drugs, medicaments and biological substances; Z88.6 Allergy status to analgesic agent; Z88.1 Allergy status to other antibiotic agents; Z79.899 Other long term (current) drug therapy; Z87.891 Personal history of nicotine dependence; G43.909 Migraine, unspecified, not intractable, without status migrainosus
CPT/HCPCS: 12001; 99282-25; A9270

== ENCOUNTER 2023-03-06 11:21 | Emergency (ER) | payer OTHER ==
[~2023-03-06] VITALS: Ht 162.6 cm; Wt 73.5 kg
[2023-03-06 12:04] LABS: BASOPHILS ABSOLUTE AUTO 0.04 K/mm3 (0.00-0.23); BASOPHILS PERCENT AUTO 0 % (0-2); EOSINOPHILS ABSOLUTE AUTO 0.36 K/mm3 (0.00-0.68); EOSINOPHILS PERCENT AUTO 3 % (0-6); Hematocrit 37.3 % (33.0-51.0); Hemoglobin 12.5 g/dL (11.5-16.0); IMMATURE GRAN ABSOLUTE AUTO 0.03 K/mm3 (0.00-0.10); IMMATURE GRAN PERCENT AUTO 0 % (0-1); LYMPHOCYTES ABSOLUTE AUTO 4.07 K/mm3 (0.84-5.20); LYMPHOCYTES PERCENT AUTO 38 % (21-46); MONOCYTES ABSOLUTE AUTO 0.51 K/mm3 (0.16-1.47); MONOCYTES PERCENT AUTO 5 % (4-13); Mean Corpuscular HGB 30.7 pg (26.0-34.0); Mean Corpuscular HGB Conc 33.5 g/dL (31.5-36.5); Mean Corpuscular Volume 92 fL (80-100); Mean Platelet Volume 8.7 fL (9.1-12.4); NEUTROPHILS ABSOLUTE AUTO 5.59 K/mm3 (1.96-9.15); NEUTROPHILS PERCENT AUTO 53 % (41-73); Platelet Count 395 K/mm3 (150-400); RDW Coefficient Variation 12.3 % (11.7-14.2); RDW Standard Deviation 41.1 fL (35.1-46.3); Red Blood Cell Count 4.07 M/mm3 (3.80-5.20)
[2023-03-06 12:23] LABS: Albumin, Blood 3.5 g/dL (3.4-5.0); Albumin/Globulin Ratio 0.9 (0.8-1.8); Bilirubin, Total 0.5 mg/dL (0.1-1.0); Bun/Creatinine Ratio 10.1 (12.0-20.0); Calcium, Blood 9.3 mg/dL (8.5-10.1); Creatinine, Blood 0.79 mg/dL (0.40-1.00); Globulin, Blood 3.9 g/dL (2.2-4.0); Potassium, Blood 3.9 mmol/L (3.5-5.5); Total Protein, Blood 7.4 g/dL (6.4-8.2)
[2023-03-06 13:17] LABS: Source, Urine Clean Catch
[2023-03-06 13:21] LABS: Appearance, Urine Clear (Clear); Bilirubin, Urine Neg (Neg); Blood, Urine Neg (Neg); Color, Urine Yellow (P-Yellow); Glucose Qualitative, Urine Neg (Neg); Ketones, Urine Neg (Neg); Leukocyte Esterase, Urine Neg (Neg); Nitrite, Urine Neg (Neg); Protein, Urine Neg (Neg); Specific Gravity, Urine 1.005 (1.003-1.022); Urobilinogen, Urine NORM (Normal)
[2023-03-06 13:55] LABS: Influenza A, PCR NEGATIVE (NEGATIVE); Influenza B, PCR NEGATIVE (NEGATIVE); Resp Syncytial Virus, PCR NEGATIVE (NEGATIVE); SARS-Cov-2 (COVID-19) PCR, MMC NEGATIVE (NEGATIVE)
[2023-03-06] MEDS ORDERED: PROM12.5S PR (14:01)
[2023-03-06 14:15] VITALS: BP 93/69
== END 2023-03-06 14:15 | disposition home or self-care (01) ==
LOC: ER 11:21
PROVIDERS: Family Medicine
DX: R11.2 Nausea with vomiting, unspecified (principal); R07.89 Other chest pain; R00.2 Palpitations; R60.0 Localized edema; R35.0 Frequency of micturition; Z20.822 Contact with and (suspected) exposure to COVID-19; Z88.8 Allergy status to other drugs, medicaments and biological substances; Z88.6 Allergy status to analgesic agent; Z79.82 Long term (current) use of aspirin; Z87.891 Personal history of nicotine dependence
CPT/HCPCS: 0241U; 71046; 80053; 81003; 83880; 84484; 85025; 93005; 93010; 96374; 99284-25; J2765

== ENCOUNTER → 2023-04-21 | Outpatient (CLI) | payer OTHER ==
[~2023-04-21] MED LIST changes: +PROM12.5S PR
[2023-04-21 18:31] LABS: Adenovirus F 40/41 Not Detected (NOT DETECT); Astrovirus Not Detected (NOT DETECT); Campylobacter Sp Not Detected (NOT DETECT); Cryptosporidium Not Detected (NOT DETECT); Cyclospora Cayetanensis Not Detected (NOT DETECT); E. Coli O157 Not Detected (NOT DETECT); Entamoeba Histolytica Not Detected (NOT DETECT); Enteroaggregative E. coli-EAEC Not Detected (NOT DETECT); Enteropathogenic E. coli-EPEC Not Detected (NOT DETECT); Enterotoxigenic E. coli-ETEC Not Detected (NOT DETECT); Giardia Lamblia Not Detected (NOT DETECT); Norovirus GI/GII Not Detected (NOT DETECT); Plesiomonas Shigelloides Not Detected (NOT DETECT); Rotavirus A Not Detected (NOT DETECT); Salmonella Sp Not Detected (NOT DETECT); Shiga Toxin-prod E. coli-STEC Not Detected (NOT DETECT); Shigella/Enteroin E. coli-EIEC Not Detected (NOT DETECT); Vibrio Cholerae Not Detected (NOT DETECT); Vibrio Sp Not Detected (NOT DETECT); Yersinia Enterocolitica Not Detected (NOT DETECT)
[2023-04-21 18:32] LABS: Sapovirus Not Detected (NOT DETECT)
== END | disposition home or self-care (01) ==
LOC: LAB SHORT 13:49 → LAB 13:49
PROVIDERS: Nurse Practitioner
DX: K52.9 Noninfective gastroenteritis and colitis, unspecified (principal); R35.0 Frequency of micturition
CPT/HCPCS: 87507

== ENCOUNTER → 2023-11-23 | Outpatient (CLI) | payer OTHER ==
[~2023-11-23] MED LIST changes: +PHENA200 PO
== END ==
LOC: LAB SHORT 16:58 → LAB 16:58
DX: N10 Acute pyelonephritis (principal)
CPT/HCPCS: 87086

== ENCOUNTER → 2024-01-28 | Outpatient (CLI) | payer OTHER ==
[2024-01-29 12:32] LABS: C DIFFICILE DNA NEGATIVE (Negative)
== END | disposition home or self-care (01) ==
LOC: LAB 12:44 → LAB SHORT 12:44
PROVIDERS: Family Medicine
DX: A49.8 Other bacterial infections of unspecified site (principal)
CPT/HCPCS: 87493

== ENCOUNTER → 2024-03-21 | Outpatient (CLI) | payer OTHER ==
[2024-03-25 16:40] LABS: OVA AND PARASITE,FECAL INTERP Negative (Negative)
== END ==
LOC: LAB 09:29 → LAB SHORT 09:29
DX: A49.8 Other bacterial infections of unspecified site (principal)
CPT/HCPCS: 87177; 87209

== ENCOUNTER → 2024-08-09 | Outpatient (CLI) | payer OTHER | END | disposition home or self-care (01) | LOC: LAB SHORT 18:55 → LAB 18:55 | DX: R35.0 Frequency of micturition (principal) | CPT/HCPCS: 87086 ==

== ENCOUNTER 2024-10-06 09:05 | Emergency (ER) | payer OTHER ==
[~2024-10-06] VITALS: Ht 162.6 cm; Wt 59.0 kg
[2024-10-06] MEDS ORDERED: Ondansetron HCl 2 MG / ML 2ML Vial IV ONE (09:30)
[2024-10-06] MEDS ORDERED: HYDROmorphone HCl/Pf 1MG SYR IV ONE ×2 (09:30→09:45)
[2024-10-06 09:40] LABS: BASOPHILS ABSOLUTE AUTO 0.09 K/mm3 (0.00-0.23); BASOPHILS PERCENT AUTO 1 % (0-2); EOSINOPHILS ABSOLUTE AUTO 0.17 K/mm3 (0.00-0.68); EOSINOPHILS PERCENT AUTO 1 % (0-6); Hematocrit 39.1 % (33.0-51.0); IMMATURE GRAN ABSOLUTE AUTO 0.03 K/mm3 (0.00-0.10); IMMATURE GRAN PERCENT AUTO 0 % (0-1); LYMPHOCYTES ABSOLUTE AUTO 4.53 K/mm3 (0.84-5.20); LYMPHOCYTES PERCENT AUTO 38 % (21-46); MONOCYTES ABSOLUTE AUTO 0.39 K/mm3 (0.16-1.47); MONOCYTES PERCENT AUTO 3 % (4-13); Mean Corpuscular HGB 30.5 pg (26.0-34.0); Mean Corpuscular HGB Conc 33.2 g/dL (31.5-36.5); Mean Corpuscular Volume 92 fL (80-100); Mean Platelet Volume 9.1 fL (9.1-12.4); NEUTROPHILS ABSOLUTE AUTO 6.59 K/mm3 (1.96-9.15); NEUTROPHILS PERCENT AUTO 56 % (41-73); Platelet Count 425 K/mm3 (150-400); RDW Coefficient Variation 12.4 % (11.7-14.2); RDW Standard Deviation 41.7 fL (35.1-46.3); Red Blood Cell Count 4.26 M/mm3 (3.80-5.20)
[2024-10-06 09:52] LABS: Albumin, Blood 4.1 g/dL (3.4-5.0); Albumin/Globulin Ratio 1.2 (0.8-1.8); Bilirubin, Total 0.5 mg/dL (0.1-1.0); Bun/Creatinine Ratio 16.1 (12.0-20.0); Calcium, Blood 8.8 mg/dL (8.5-10.1); Creatinine, Blood 0.75 mg/dL (0.40-1.00); Globulin, Blood 3.5 g/dL (2.2-4.0); Potassium, Blood 3.9 mmol/L (3.5-5.5); Total Protein, Blood 7.6 g/dL (6.4-8.2)
[2024-10-06] MEDS ORDERED: Dexamethasone Sod Phos 10 MG/ML 1ML VIAL IV ONE (10:55)
[2024-10-06 11:00] VITALS: BP 112/68
[2024-10-06] MEDS ORDERED: Ketorolac Tromethamine 30mg Vial IV ONE (11:30)
[2024-10-06] MEDS ORDERED: METPRE4DP PO (12:59)
[2024-10-06] MEDS ORDERED: IBUP600 PO (13:00)
== END 2024-10-06 13:13 | disposition home or self-care (01) ==
LOC: ER 09:05
PROVIDERS: Emergency Medicine
DX: R07.2 Precordial pain (principal); M54.10 Radiculopathy, site unspecified; Z88.5 Allergy status to narcotic agent; Z88.8 Allergy status to other drugs, medicaments and biological substances; Z88.6 Allergy status to analgesic agent; Z79.890 Hormone replacement therapy; Z79.1 Long term (current) use of non-steroidal anti-inflammatories (NSAID); Z88.1 Allergy status to other antibiotic agents
CPT/HCPCS: 71260; 80053; 84484; 85025; J1100; J1171; J1885; J2405; Q9967

== ENCOUNTER → 2024-10-18 | Outpatient (CLI) | payer OTHER ==
[~2024-10-18] MED LIST changes: +IBUP600 PO; +METPRE4DP PO
== END | disposition home or self-care (01) ==
LOC: LAB 17:02 → LAB SHORT 17:02
DX: N30.00 Acute cystitis without hematuria (principal); R30.0 Dysuria
CPT/HCPCS: 87086

== ENCOUNTER → 2025-05-08 | Outpatient (CLI) | payer OTHER | LOC: LAB SHORT 11:09 → LAB 11:09 | DX: R10.2 Pelvic and perineal pain (principal) | CPT/HCPCS: 87086 ==